=== PATIENT | female | born 1935 | race African-American/Black ===

== ENCOUNTER → 2016-12-17 | Outpatient (CLI) | payer OTHER ==
[2013-11-06 14:55] VITALS: BP 94/54
[~2016-12-17] MED LIST: AMIO200T2 PO; ASPI-482 PO; CLOP75TA PO; DILT240C32 PO; FAMO20TA5 PO; FURO40TA4 PO; HYDR-2758 PO; HYDR12.53 PO; LISI2.5T PO; MONT10TA9 PO; OMEG1CAP6 PO; POTA10TA31 PO; POTA20TA12 PO; PROP10TA PO; RED600TA PO; WARF5TAB7 PO
--- NOTE | 2016-12-17 09:29 | KCIC ---
CT CHEST WO CONTRAST dated 12/17/2016 8:30 AM Indication: Persistent cough, history of CHF and COPD, shortness of air, wheezing Comparison: June 16, 2013 Technique: Noncontrast CT imaging was performed of the chest. Multiplanar reconstruction images submitted. One or more of the following individualized dose reduction techniques were utilized for this examination: 1. Automated exposure control 2. Adjustment of the mA and/or kV according to patient size 3. Use of iterative reconstruction technique Findings: There is motion degradation. There is coronary calcification. There is no abnormal pericardial or pleural fluid or pneumothorax. There is no lobar infiltrate. There is moderate to severe centrilobular emphysema with upper zone predominance. No new significant lymphadenopathy is identified of the chest. Major airways are patent. Poorly characterized without intravenous contrast, there is again contour irregularity of the descending thoracic aorta at a level just below the jessica, more protuberant density extending to the right laterally and slightly superiorly. It is difficult to accurately evaluate for change given lack of contrast although neck on the order of 3.4 cm which is probably somewhat greater as previously estimated at 2.7 cm, maximal lateral extent estimated at 2.1 cm versus previously on the order of 1.7 cm. There is another adjacent more distal focus of protuberance of the wall also protruding laterally on the right with neck estimated at 2.5 cm versus previously probably on the order of 1.9 cm and maximal lateral extent up to 1.2 cm versus previously 1.1 cm. Ascending thoracic aortic caliber is within normal limits. There are again multiple hypodense foci of the liver, most of which are smaller. There is multilevel thoracic spondylosis. There is a small calcification of the right renal hilum although possibly vascular in etiology. IMPRESSION: 1. There is moderate to severe centrilobular emphysema with upper zone predominance. There is no significant infiltrate. 2. 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 3. There is coronary calcification. Electronically signed by: Nitin Hyde MD (12/17/2016 9:26 AM) [facility]
== END | disposition home or self-care (01) ==
LOC: KCIC CT 08:08
PROVIDERS: ATTEND Internal Medicine Pulmonary Disease
DX: J43.2 Centrilobular emphysema (principal); J44.9 Chronic obstructive pulmonary disease, unspecified; M47.894 Other spondylosis, thoracic region; I50.9 Heart failure, unspecified
CPT/HCPCS: 71250

== ENCOUNTER → 2017-03-22 | Day surgery (SDC) | payer OTHER ==
[~2017-03-22] MED LIST changes: -AMIO200T2 PO; -ASPI-482 PO; -CLOP75TA PO; -DILT240C32 PO; -FAMO20TA5 PO; -FURO40TA4 PO; -HYDR-2758 PO; -HYDR12.53 PO; -LISI2.5T PO; -MONT10TA9 PO; -OMEG1CAP6 PO; -POTA10TA31 PO; -POTA20TA12 PO; -PROP10TA PO; +PROPOFOL 40 ML IV; -RED600TA PO; -WARF5TAB7 PO
[2017-03-22] MEDS: IV RINGERS,LACTATED 1000ML 1,000 ML IV (10:40)
== END | disposition home or self-care (01) ==
LOC: SURG 09:51
DX: K57.30 Diverticulosis of large intestine without perforation or abscess without bleeding (principal); K62.1 Rectal polyp; K31.7 Polyp of stomach and duodenum; D50.0 Iron deficiency anemia secondary to blood loss (chronic); I11.0 Hypertensive heart disease with heart failure; I50.22 Chronic systolic (congestive) heart failure; J44.9 Chronic obstructive pulmonary disease, unspecified; E78.5 Hyperlipidemia, unspecified; I25.10 Atherosclerotic heart disease of native coronary artery without angina pectoris; Z86.010 Personal history of colon polyps
CPT/HCPCS: 43239; 88305; J2704

== ENCOUNTER → 2018-01-03 | Outpatient (CLI) | payer MEDICARE, OTHER ==
[2017-03-22 11:50] VITALS: BP 140/79
[~2018-01-03] MED LIST changes: +AMIO200T4 PO; +ASPI-482 PO; +CARV12.5 PO; +CARV25TA2 PO; +CLOP75TA PO; +DILT240C32 PO; +FAMO20TA5 PO; +FLUT1DIS IH; +FURO40TA4 PO; +HYDR-2758 PO; +HYDR12.53 PO; +LEVO25TA55 PO; +LISI2.5T PO; +MONT10TA9 PO; +NITR0.4T SL; +OMEG1CAP6 PO; +POTA10TA31 PO; +POTA20TA12 PO; +POTA20TA82 PO; +PRED-220 PO; +PROAIR HFA8.5 GM INH; +PROP10TA PO; -PROPOFOL 40 ML IV; +RED600TA PO; +WARF-31 PO
--- NOTE | 2018-01-04 09:45 | SLEEP ---
DATE OF STUDY: 01/03/2018 PRIMARY CARE PHYSICIAN: Dr. Keya Mendiola. REFERRING PHYSICIAN: Dr. Lloyd. The patient is 82-year-old who weighs 236 pounds with a BMI of 43. The patient's Worton score was 11. The patient underwent a diagnostic sleep study at [facility]. During the night study, the patient spent 412 minutes in bed and slept for 317 minutes with a sleep efficiency of 77%. Sleep latency was 39 minutes with a REM latency of 48 minutes. Overall, sleep architecture showed increased stage 1 and stage 2 sleep, absent slow wave and slightly reduced REM sleep. During the night study, the patient had 13 obstructive apneas, 2 mixed apneas, no central apneas and 37 hypopneas. The patient's apnea hypopnea index was 10 per hour, supine index 11 per hour and REM index of 44 per hour. Review of nocturnal oximetry study revealed an average oxygen saturation 95% with the lowest of 84%. 9% of time oxygen saturation remained between 80% and 89%. EKG monitoring revealed normal sinus rhythm, average heart rate was 66 beats per minute, no arrhythmias seen. No clinically significant PLM seen. IMPRESSION: 1. Mild sleep apnea-hypopnea syndrome with worsening during REM sleep. Total AHI 10 per hour with a REM AHI of 44 per hour. 2. Nocturnal hypoxia secondary to obstructive sleep apnea. 3. No clinically significant PLMS. RECOMMENDATIONS: 1. The patient is clinically symptomatic and as such, would benefit from treatment of sleep apnea with either an oral appliance or a trial of CPAP titration. 2. If the patient undergoes CPAP titration, then she should be followed up in 4-6 weeks to assess compliance with CPAP and to document clinical improvement. 3. Weight loss is advised. 4. Avoid TOOLING MANAGER depressants. 5. Caution regarding driving until symptoms of sleep apnea resolve with above recommendation. JOE ROSARIO MD DR: KINA/candace JOB#: [id number] / [id number] KEYA Corral MD, SABATO MD MTDD
== END | disposition home or self-care (01) ==
LOC: SLPLAB 18:23
PROVIDERS: ATTEND Internal Medicine Pulmonary Disease
DX: G47.33 Obstructive sleep apnea (adult) (pediatric) (principal); G47.34 Idiopathic sleep related nonobstructive alveolar hypoventilation; E13.9 Other specified diabetes mellitus without complications; I11.0 Hypertensive heart disease with heart failure; I50.22 Chronic systolic (congestive) heart failure; E78.5 Hyperlipidemia, unspecified; J43.9 Emphysema, unspecified; K21.9 Gastro-esophageal reflux disease without esophagitis; Z72.0 Tobacco use; Z90.710 Acquired absence of both cervix and uterus; Z82.49 Family history of ischemic heart disease and other diseases of the circulatory system; Z79.82 Long term (current) use of aspirin; Z79.02 Long term (current) use of antithrombotics/antiplatelets
CPT/HCPCS: 95810

== ENCOUNTER → 2018-02-13 | Outpatient (CLI) | payer OTHER ==
[2017-03-22 11:50] VITALS: BP 140/79
[~2018-02-13] MED LIST changes: +ZOLPIDEM 5 MG TABLET. PO ONE
--- NOTE | 2018-02-14 13:13 | SLEEP ---
DATE OF STUDY: 02/13/2018 ATTENDING PHYSICIAN: Dr. Keya Mendiola. REFERRING PHYSICIAN: Dr. Lloyd. The patient is 82 years old who weighs 236 pounds with a BMI of 43. The patient had a previous sleep study and was found to mild HAILE with worsening during REM sleep. Total AHI was 10 per hour with a REM AHI of 44 per hour. She was clinically symptomatic, as a result she was referred back for CPAP titration study. During the night study, the patient spent 405 minutes in bed and slept for 247 minutes with a low sleep efficiency of 61%. Sleep latency was 87 minutes with a REM latency of 93 minutes. Overall, sleep architecture showed increased stage 1 and stage 2 sleep, absent slow wave and reduced REM sleep, which was only 5% of the total sleep time. The patient was started on CPAP at 5 cm water and titrated up to 9 cm water. At the final pressure, the patient slept for 82 minutes. The patient had supine sleep, but no REM sleep. The patient's AHI was reduced to 0 per hour and oxygen saturation remained above 94%. The patient used a large size nasal mask. EKG monitoring revealed LVH with repolarization abnormalities. Occasional PVCs seen. No sustained arrhythmias were observed. Average heart rate was 76 beats per minute. PLMs were seen at index of 59 per hour and 13 per hour caused EEG arousals. IMPRESSION: 1. Sleep apnea diagnosed by previous sleep study. 2. Severe PLMS. RECOMMENDATIONS: 1. CPAP at 9 cm water completely eliminated the patient's sleep apnea and should be used on a nightly basis. The patient used a large sized nasal mask. 2. Follow up in 4-6 weeks to assess compliance with CPAP and to document clinical improvement. 3. Weight loss is strongly advised. 4. Avoid HEAD OF PRODUCT depressants. 5. Caution regarding driving until symptoms of sleep apnea resolve with the use of CPAP. 6. The patient should also be further evaluated for symptoms of restless legs during the day. JOE ROSARIO MD DR: KINA/candace JOB#: [id number] / [id number] KEYA Corral MD, SABATO MD MTDD
== END | disposition home or self-care (01) ==
LOC: RT 18:49
PROVIDERS: ATTEND Internal Medicine Pulmonary Disease
DX: G47.33 Obstructive sleep apnea (adult) (pediatric) (principal); G47.61 Periodic limb movement disorder
CPT/HCPCS: 95811

== ENCOUNTER → 2018-02-20 | Outpatient (CLI) | payer OTHER ==
[2017-03-22 11:50] VITALS: BP 140/79
[~2018-02-20] MED LIST changes: -ZOLPIDEM 5 MG TABLET. PO ONE
--- NOTE | 2018-02-20 14:16 | CARD ---
MR#: [id number] Date of Study: 02/20/2018 Ordering Physician: CHIQUIS FUENTES, Referring Physician: CHIQUIS FUENTES, Tech: Michaela Baez APPROVED REPORT EXAM: Two-dimensional and M-mode echocardiogram with Doppler and color Doppler. Other Information Quality : AverageHR: 73bpm Rhythm : NSRTechnically limited study due to body habitus. INDICATION Dyspnea RISK FACTORS Hyperlipidemia Previous smoker 2D DIMENSIONS RVDd2.7 (2.9-3.5cm)Left Atrium(2D)3.8 (1.6-4.0cm) IVSd1.1 (0.7-1.1cm)Aortic Root(2D)2.8 (2.0-3.7cm) LVDd3.2 (3.9-5.9cm)LVOT Diameter2.2 (1.8-2.4cm) PWd1.3 (0.7-1.1cm)LVDs3.6 (2.5-4.0cm) FS (%) 13.1 %SV13.8 ml LVEF(%)34.6 (>50%) Aortic Valve AoV Peak Mamadou.144.7cm/sAoV VTI27.4cm AO Peak GR.8.4mmHgLVOT Peak Mamadou.118.1cm/s LVOT VTI 23.66cmAO Mean GR.4mmHg GLADYS (VMAX)2.03ek5KOT (VTI)3.13cm2 Mitral Valve MV E Fovdzqyt09.0cm/sMV E Peak Gr.105mmHg MV DECEL [id number] A Fnuivaaf165.7cm/s MV KVF16ofQ/A Ratio0.8 MVA (PHT)3.87cm2 TDI E/Lateral E'15.9E/Medial E'16.2 Pulmonary Valve PV Peak Nkyfubuv263.3cm/sPV Peak Grad.6mmHg Tricuspid Valve TR P. Blzstzlv172en/sRAP AQYRUIPM2tiRa TR Peak Gr.29lfIvGHNV00tvBm Pulmonary Vein S1 Onnpitnn50.5cm/sD2 Iiopdjil45.1cm/s PVa mqybwckj08kosw LEFT VENTRICLE The left ventricle is normal size. There is borderline to mild concentric left ventricular hypertroph y. The left ventricular systolic function is normal and the ejection fraction is within normal range. The Ejection Fraction is 50-55%. Grossly normal wall motion. Technically difficult study. Transmitra l Doppler flow pattern is Grade I-abnormal relaxation pattern. RIGHT VENTRICLE The right ventricle is normal size. There is normal right ventricular wall thickness. The right ventr icular systolic function is normal. ATRIA The left atrium size is normal. The right atrium size is normal. Atrial septum not well visualized. AORTIC VALVE The aortic valve is probably trileaflet. Doppler and Color Flow revealed trace aortic regurgitation. There is no significant aortic valvular stenosis. MITRAL VALVE Cannot rule out mild prolapse. There is no mitral valve stenosis. Doppler and Color-flow revealed tra ce mitral regurgitation. TRICUSPID VALVE The tricuspid valve is not well visualized. Doppler and Color Flow revealed mild to moderate tricuspi d regurgitation. RVSP approximately 38 mm Hg. There is no tricuspid valve stenosis. PULMONIC VALVE The pulmonic valve is not well visualized. Doppler and Color Flow revealed no pulmonic valvular regur gitation. There is no pulmonic valvular stenosis. GREAT VESSELS The aortic root is normal in size. Normal pulmonary venous flow (Doppler). IVC is not well visualized . PERICARDIAL EFFUSION There is no evidence of significant pericardial effusion. Critical Notification Critical Value: No <Conclusion> The left ventricular systolic function is normal and the ejection fraction is within normal range. Th e Ejection Fraction is 50-55%. Grossly normal wall motion. Technically difficult study. Doppler and Color Flow revealed mild to moderate tricuspid regurgitation. RVSP approximately 38 mm Hg . Signed by : Quinten Dexter, Electronically Approved : 02/20/2018 14:15:53
== END | disposition home or self-care (01) ==
LOC: ECHO 12:52
PROVIDERS: ATTEND Internal Medicine Cardiovascular Disease
DX: I36.1 Nonrheumatic tricuspid (valve) insufficiency (principal); E78.5 Hyperlipidemia, unspecified; I51.7 Cardiomegaly; Z87.891 Personal history of nicotine dependence
CPT/HCPCS: 93306

== ENCOUNTER → 2020-01-16 | Outpatient (CLI) | payer MEDICARE ==
[2017-03-22 11:50] VITALS: BP 140/79
[~2020-01-16] MED LIST changes: +ALBU2.5V8 INH; -HYDR-2758 PO; +HYDR-2761 PO; -HYDR12.53 PO; +HYDR12.575 PO; +MONT10TA49 PO; -MONT10TA9 PO; -NITR0.4T SL; +NITR0.4T24 SL; +POTA20TA4 PO; -POTA20TA82 PO; -PROAIR HFA8.5 GM INH
--- NOTE | 2020-01-16 12:23 | CARD ---
MR#: [id number] Date of Study: 01/16/2020 Ordering Physician: CHIQUIS FUENTES, Referring Physician: CHIQUIS FUENTES, Tech: Rae Phillips HUDSON APPROVED REPORT EXAM: Two-dimensional and M-mode echocardiogram with Doppler and color Doppler. Other Information Quality : Fair INDICATION Dyspnea Peripheral Edema Wheezing RISK FACTORS Obesity 2D DIMENSIONS RVDd2.5 (2.9-3.5cm)Left Atrium(2D)3.4 (1.6-4.0cm) IVSd1.4 (0.7-1.1cm)Aortic Root(2D)2.8 (2.0-3.7cm) LVDd4.6 (3.9-5.9cm)LVOT Diameter2.0 (1.8-2.4cm) PWd1.0 (0.7-1.1cm)LVDs3.2 (2.5-4.0cm) FS (%) 29.1 %SV53.1 ml LVEF(%)56.0 (>50%) Aortic Valve AoV Peak Mamadou.164.0cm/sAoV VTI29.0cm AO Peak GR.10.8mmHgLVOT Peak Mamadou.142.7cm/s AO Mean GR.5mmHgAVA (VMAX)2.66cm2 GLADYS (VTI)2.70cm2 Mitral Valve MV E Jouzgmhn95.2cm/sMV DECEL CQBN772op MV A Jywvxuyc200.1cm/sE/A Ratio0.6 Tricuspid Valve TR P. Lsqoavhc899rp/sRAP EVYAZZEO9owJe TR Peak Gr.23tqCrDSDO25jnBh Pulmonary Vein S1 Mehokxsr57.6cm/sD2 Wxvfnlvv24.2cm/s LEFT VENTRICLE The left ventricle is normal size. There is mild to moderate concentric left ventricular hypertrophy. The left ventricular systolic function is normal and the ejection fraction is within normal range. T he Ejection Fraction is 55-60%. There is normal LV segmental wall motion. Transmitral Doppler flow pa ttern is Grade I-abnormal relaxation pattern. RIGHT VENTRICLE The right ventricle is normal size. The right ventricular systolic function is normal. ATRIA The left atrium size is normal. The right atrium size is normal. The interatrial septum is intact wit h no evidence for an atrial septal defect or patent foramen ovale as noted on 2-D or Doppler imaging. AORTIC VALVE The aortic valve is calcified but opens well. Doppler and Color Flow revealed no significant aortic r egurgitation. There is no significant aortic valvular stenosis. MITRAL VALVE The mitral valve is calcified but opens well. Mitral annular calcification is mild. There is no evide nce of mitral valve prolapse. There is no mitral valve stenosis. Doppler and Color-flow revealed trac e mitral regurgitation. TRICUSPID VALVE The tricuspid valve is normal in structure and function. Doppler and Color Flow revealed mild tricusp id regurgitation. The PA pressure was estimated at 41 mmHg. There is no tricuspid valve stenosis. PULMONIC VALVE The pulmonic valve is not well visualized. Doppler and Color Flow revealed no pulmonic valvular regur gitation. There is no pulmonic valvular stenosis. GREAT VESSELS The aortic root is normal in size. The ascending aorta is not well seen. The IVC is normal in size an d collapses <50% with inspiration. PERICARDIAL EFFUSION There is no evidence of significant pericardial effusion. Critical Notification Critical Value: No <Conclusion> There is mild to moderate concentric left ventricular hypertrophy. The left ventricular systolic function is normal and the ejection fraction is within normal range. Th e Ejection Fraction is 55-60%. There is normal LV segmental wall motion. Doppler and Color Flow revealed mild tricuspid regurgitation. The PA pressure was estimated at 41 mmH g. The IVC is normal in size and collapses <50% with inspiration. Signed by : Quinten Dexter, Electronically Approved : 01/16/2020 12:22:57
== END | disposition home or self-care (01) ==
LOC: ECHO 09:45
PROVIDERS: ATTEND Internal Medicine Cardiovascular Disease
DX: I08.3 Combined rheumatic disorders of mitral, aortic and tricuspid valves (principal)
CPT/HCPCS: 93306

== ENCOUNTER → 2020-02-13 | Outpatient (CLI) | payer MEDICARE ==
[2017-03-22 11:50] VITALS: BP 140/79
[~2020-02-13] MED LIST changes: -AMIO200T4 PO; +AMIO200T6 PO; +FERR220S8 PO; +IOHEXOL 180 MG/ML 10 ML VIAL. ONE; +MAGN400O7 PO; +PANT40TA77 PO; +POTA10TA12 PO; +PRED5TAB PO; +methylPREDNISolone ACETATE 40 MG/ML VIAL. ONE; +methylPREDNISolone ACETATE 80 MG/ML VIAL. ONE
--- NOTE | 2020-02-13 13:04 | PDOC1 ---
INITIAL PAIN CONSULT DATE OF SERVICE: DOS: DATE: 02/13/20 TIME: 12:58 CHIEF COMPLAINT: Chief Complaint: Low back and left lower extremity pain HISTORY OF PRESENT ILLNESS: 84-year-old female presents history of pain in the low back and left lower extremity for approximately 1 to 2 years worse over the past few months. Patient reports no specific injury or accident that she is aware of but the pain is beginning to increase significant across the low back into the left lower extremity posterior gluteus posterior lateral thigh lateral anterior thigh anterior medial thigh medial lower leg to the ankle on the left side with some significant soreness patient describes the pain as throbbing in the back and the leg intermittent intensity in the leg worse with walking standing changing positions and aching in the back and the leg patient did have a MRI scan lumbar spine showing multilevel disc degeneration and degenerative spondylosis with 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 Patient rates her disability rating 0-10 10 being the worst is a 9 with family home responsibilities 10 with rec reation social activity 1 with self-care activities 0 in social activity occupation and life support activities patient is taking hydrocodone which he took as early as this morning and this does help with pain by about 40 to 50% patient has had some physical therapy in the past but nothing recently and is doing some stretching on her own and trying to walk daily but is becoming more difficult from the pain. Patient ports it wakes her from sleep occasionally but only once or twice a night on most nights it does not affect her bowel bladder control but does affect her ability to walk she uses a cane and she has a rolling walker with her today. Patient reports no loss of motor function but significant fatigability especially of the left lower extremity with ambulation. Better with sitting or lying down. PAST MEDICAL HISTORY: PMH: Hearing loss hypertension COPD emphysema shortness of breath arthritis gastroesophageal reflux cardiac disease PREVIOUS SURGERIES: Past Surgical Hx: Hysterectomy, breast biopsy, tubal ligation, cardiac stent placement, bilateral cataract extractions CURRENT MEDICATIONS: Current Meds: Active Scripts Medications Dose Route/Sig Max Daily Dose Days Date Category Milk Of Magnesia (Magnesium Hydroxide) 400 Mg/5 Ml Oral.susp 400 Mg PO PRN PRN 02/13/20 Reported Hydrocodone-Apap 5-325 (Hydrocodone Bit/Acetaminophen) 1 Tab Tablet 1 Tab PO PRN Q6HRS PRN 02/13/20 Reported Ferrous Sulfate 220 Mg/5 Ml Elixir 325 Mg PO DAILY 02/13/20 Reported Pantoprazole Sodium (Pantoprazole Sodium) 40 Mg Tablet. 40 Mg PO DAILYAC 02/13/20 Reported Prednisone 5 Mg Tablet 5 Mg PO DAILY 02/13/20 Reported Klor-Con 10 (Potassium Chloride) 10 Meq Tablet.er 10 Meq PO EVERY OTHER DAY 02/13/20 Reported Synthroid (Levothyroxine Sodium) 25 Mcg Tablet 1 Tab PO DAILY 03/22/17 Reported Nitrostat (Nitroglycerin) 0.4 Mg Tab.subl 0.4 Mg SL PRN Q5MIN PRN 03/22/17 Reported Coreg (Carvedilol) 12.5 Mg Tablet 1 Tab PO BID 03/22/17 Reported Proair Hfa Inhaler (Albuterol Sulfate) 8.5 Gm Hfa.aer.ad 1 Puff INH PRN Q6HRS PRN 03/22/17 Reported Advair 100-50 Diskus (Fluticasone/Salmeterol) 1 Each Disk.w.dev 1 Puff IH BID 03/22/17 Reported Aspir 81 (Aspirin) 81 Mg Tablet. 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 Extraocular movements are intact and symmetrical. Oral cavity: Mucous membranes moist and pink. Dentition is intact. NECK: Shows anterior throat supple without palpable lymphadenopathy noted. Swallow reflex symmetrical. CHEST: Shows normal on inspection. Breath sounds are coarse bilaterally, no rales or rhonchi auscultated but wheezes expirator are audible bilaterally. HEART: Shows S1, S2 clear. No murmurs auscultated. ABDOMEN: Soft, nontender, nondistended, obese. No palpable organomegaly is noted. No rebound or guarding demonstrated. BACK: Shows spine grossly in the midline. Normal-appearing cervical lordotic curvature. There is slightly increased thoracic kyphosis, some minor flattening of the lumbar lordotic curvature. Lumbar paraspinous muscles show symmetrical on inspection, on palpation shows some moderate tenderness diffusely throughout the upper, middle and lower distribution of the paraspinous muscles bilaterally and also into the lower thoracic paraspinous musculature, firm and tender, but without specific trigger points, without radiation of pain. The patient has good rotational motion of the lumbar spine, both laterally as well as extension and flexion without significant difficulty. No tenderness over the spinous processes, sacrum or sacroiliac regions. EXTREMITIES: Lower extremities show deep tendon reflexes 1+ in the patellar and tendo calcaneus tendons. Motor exam is 5 on a scale of 5 with right dorsiflexion, extension, quadriceps and hamstring flexion and 4/5 on the left. Peripheral pulses are 1+ posterior tibial. 1+ peripheral edema is noted bilaterally in the ankles. Lower extremities are warm and dry to touch, equal in color and appearance. Gaenslen's and Logan's maneuvers are negative bilaterally. The patient is able to stand, but needs assistance getting from a seated to standing position using walker she has with her today and has a significant antalgic gait. SKIN: Shows warm and dry, good turgor. No edema. No sores, rashes or bruising throughout. IMPRESSION: Impression: 84-year-old female with approximate 1 to 2-year history increasing pain low back left lower extremity radicular fashion MRI scan lumbar spine as noted Hypertension COPD Arthritis Plan: Options were discussed with the patient including conservative medical management physical therapies and interventional techniques. She elects interventional techniques, we discussed a lumbar epidural steroid injection using description as well as anatomical models to describe the procedure. Risks were discussed including but not limited to: Bleeding, infection, possibility of epidural hematoma and subsequent neurological compromise, dural puncture, headaches, spinal cord and/or nerve damage, side effects of steroid medication, and poor results regarding pain control. Patient understands wished to proceed. Patient will return to clinic in approximate 2 weeks for follow-up was counseled as to return appointment activity level and side effects to be aware of. Procedure is lumbar epidural steroid injection under local anesthetic using sterile prep and drape at the L4-5 level using C-arm fluoroscopic guidance in both AP and lateral views medications injected is 120 mg Depo-Medrol + 10 mL preservative-free normal saline and 2 mL contrast- condition at discharge is stable patient tolerated procedure well had no complications. JIMENA LEPE MD Feb 13, 2020 13:04
== END | disposition home or self-care (01) ==
LOC: PNCL 10:36
PROVIDERS: ATTEND Anesthesiology
DX: M54.5 Low back pain (principal); M79.605 Pain in left leg; I11.0 Hypertensive heart disease with heart failure; I50.9 Heart failure, unspecified; E78.00 Pure hypercholesterolemia, unspecified; I25.10 Atherosclerotic heart disease of native coronary artery without angina pectoris; I48.91 Unspecified atrial fibrillation; J43.9 Emphysema, unspecified; E66.9 Obesity, unspecified; Z87.891 Personal history of nicotine dependence; Z79.899 Other long term (current) drug therapy; Z90.710 Acquired absence of both cervix and uterus; Z98.890 Other specified postprocedural states; Z79.82 Long term (current) use of aspirin; Z88.8 Allergy status to other drugs, medicaments and biological substances
CPT/HCPCS: 62323; J1030; J1040; Q9965

== ENCOUNTER → 2020-03-03 | Outpatient (CLI) | payer MEDICARE ==
[2017-03-22 11:50] VITALS: BP 140/79
--- NOTE | 2020-03-03 11:59 | PDOC ---
Progress Note - Pain Clinic Date of Service: DOS: DATE: 03/03/20 TIME: 11:55 Diagnosis: Dx: Lumbar radiculopathy with lumbar degenerative disease and lumbar spinal stenosis History or Present Illness: HPI: 84-year-old female returns follow-up status post lumbar epidurals or injection x1. Patient ports about 20 to 30% improvement but still significant pain in the low back and bilateral lower extremities posterior gluteus posterior thigh especially on the right side in the anterior thigh anteromedial thigh and medial lower leg patient ports aching shooting stabbing severe unbearable at times worse with walking and standing also some pain in the left hip. Patient reports is a 10 on scale 10 is worse on the average is a 9 and least is a 9 is a 9 today as well. Patient reports generally does not awaken her from sleep she feels much better sitting or laying down but prolonged sitting can exacerbate the pain as well. Patient reports no loss of motor function no new bowel or bladder incontinence no new complaints. Physical Exam: VS: Blood pressure is 144/84 pulse 85 respirations 18 temperature is 98.1 F, height is 5 feet 3 inches weight is 233 pounds PE: PHYSICAL EXAMINATION: GENERAL: The patient is awake, alert, oriented, appropriate, very pleasant demeanor HEENT: Shows normocephalic, atraumatic. Extraocular movements are intact and symmetrical. NECK: Shows anterior throat supple without palpable lymphadenopathy noted. Swallow reflex symmetrical. CHEST: Shows normal on inspection. Breath sounds are coarse bilaterally, with minor expiratory wheezes but no rales or rhonchi bilaterally. HEART: Shows S1, S2 clear. No murmurs auscultated. ABDOMEN: Soft, nontender, nondistended, obese. No palpable organomegaly is noted. No rebound or guarding demonstrated. BACK: Shows spine grossly in the midline. Normal-appearing cervical lordotic curvature. There is slightly increased thoracic kyphosis, some minor flattening of the lumbar lordotic curvature. Lumbar paraspinous muscles show symmetrical on inspection, on palpation shows some moderate tenderness diffusely throughout the upper, middle and lower distribution of the paraspinous muscles,but without specific trigger points, without radiation of pain. The patient has good rota tional motion of the lumbar spine, both laterally as well as extension and flexion without significant difficulty. No tenderness over the spinous processes, sacrum or sacroiliac regions. EXTREMITIES: Lower extremities show deep tendon reflexes 1 in the patellar and tendo calcaneus tendons. Motor exam is 5 on a scale of 5 with right dorsiflexion, extension, quadriceps and hamstring flexion and 4/5 on the left. Peripheral pulses are 1+ posterior tibial. Lower extremities are warm and dry to touch, equal in color and appearance. SKIN: Shows warm and dry, good turgor. No edema. No sores, rashes or bruising throughout. Procedure: Procedure: Options were discussed. Patient's old chart was reviewed his current medication regimen updated current review of systems updated today as well. We will proceed with a second in a series lumbar epidural steroid injection today with fluoroscopic guidance. Risks were discussed including but not limited to: Bleeding, infection, possibility of epidural hematoma and subsequent neurological compromise, dural puncture, headaches, spinal cord and/or nerve damage, side effects of steroid medication, and poor results regarding pain control. Patient understands wished to proceed. Patient will return to the clinic in possibly 2 weeks for follow-up was counseled as to return appointment activity level and side effects to be aware of. Medication Injected: Med Injected: Procedure is lumbar epidural steroid injection, patient in sitting position, under local anesthetic using sterile prep and drape at the L4-5 level using C- arm fluoroscopic guidance in both AP and lateral views medications injected is 120 mg Depo-Medrol + 10 mL preservative-free normal saline and 2 mL contrast- condition at discharge is stable patient tolerated procedure well had no complications. Condition at Discharge: Condition at Discharge: Edition at discharge is stable patient tolerated procedure well and had no com plications. IJMENA LEPE MD Mar 03, 2020 11:59
== END | disposition home or self-care (01) ==
LOC: PNCL 11:10
PROVIDERS: ATTEND Anesthesiology
DX: M51.16 Intervertebral disc disorders with radiculopathy, lumbar region (principal); M48.061 Spinal stenosis, lumbar region without neurogenic claudication; I11.0 Hypertensive heart disease with heart failure; I50.9 Heart failure, unspecified; E78.00 Pure hypercholesterolemia, unspecified; I48.91 Unspecified atrial fibrillation; J43.9 Emphysema, unspecified; M19.90 Unspecified osteoarthritis, unspecified site; Z90.710 Acquired absence of both cervix and uterus; Z98.890 Other specified postprocedural states; Z79.899 Other long term (current) drug therapy; Z87.891 Personal history of nicotine dependence; Z79.82 Long term (current) use of aspirin; Z88.8 Allergy status to other drugs, medicaments and biological substances
CPT/HCPCS: 62323; J1030; J1040; Q9965